=== PATIENT | male | born 1955 | race Caucasian/White ===

== ENCOUNTER 2017-08-07 15:38 | Outpatient (CLI) | payer BC ==
--- NOTE | 2017-08-07 17:03 | RAD ---
CHEST TWO VIEWS: History: Cough, congestion. Comparison: None. FINDINGS: Atherosclerosis of the aorta. Normal cardiac silhouette. The pulmonary vessels and hilum are normal. Costophrenic angles are clear. No consolidation or mass. No pneumothorax or osseous abnormality. IMPRESSION: No acute cardiopulmonary process. POS: [facility]
== END 2017-08-07 15:39 | disposition home or self-care (01) ==
LOC: SCSRAD 15:38
PROVIDERS: ATTEND Nurse Practitioner Family
DX: J40 Bronchitis, not specified as acute or chronic (principal)
CPT/HCPCS: 71046

== ENCOUNTER 2018-04-04 09:41 | Outpatient (CLI) | payer BC ==
[2018-04-04 10:37] LABS: Band 20 % (5-11); Hemoglobin 15.7 g/dL (14.0-18.0); Lymphocytes 3 % (21-51); MDiff Complete? YES; Mean Corpuscular HGB CONC 36.8 g/dL (32.0-36.0); Mean Corpuscular Hemoglobin 32.1 pg (27.0-31.0); Mean Corpuscular Volume 87.3 fL (78.0-98.0); Mean Platelet Volume 7.1 fL (7.4-10.4); Monocytes 4 % (0-10); Neutrophil 73 % (42-75); PLT Morphology Comment Appears Adequate; Platelet Count 201 thou/uL (130-400); RBC Morphology Normal; Red Blood Cell (RBC) Count 4.87 mill/uL (4.70-6.10); White Blood Cell (WBC) Count 28.1 thou/uL (4.8-10.8)
--- NOTE | 2018-04-04 12:22 | RAD ---
ABDOMEN TWO VIEWS: CHEST ONE VIEW: HISTORY: R10.31, right lower quadrant abdominal pain. COMPARISON: Radiograph from 08/07/2017. FINDINGS: Abnormally increased lung markings in both lung bases, worse than on the comparison exam. No pneumot horax. On the upright examination, there is no free air under the hemidiaphragms. There is abnormal lucency and air-fluid level in the right lower quadrant of the abdomen. Moderate degenerative changes to the lumbar spine. No abnormal calcifications projecting over the re nal shadows. Surgical clips along the inguinal areas bilaterally. IMPRESSION: Abnormal lucency along the right lower quadrant of the abdomen may reflect pneumatosis of the cecum. CT abdomen and pelvis with contrast is recommended. CODE CR POS: [facility]
== END 2018-04-04 09:42 | disposition home or self-care (01) ==
LOC: SCSRAD 09:41
PROVIDERS: ATTEND Nurse Practitioner Family
DX: R10.31 Right lower quadrant pain (principal); R93.5 Abnormal findings on diagnostic imaging of other abdominal regions, including retroperitoneum
CPT/HCPCS: 36415; 74022; 85025

== ENCOUNTER 2018-04-04 12:01 | Inpatient (IN) | payer BC ==
[~2018-04-04 12:01] MED LIST: ISOVUE-370 76%-LOCM 1 ML ONE
[2018-04-04 12:58] LABS: Hemoglobin 15.1 g/dL (14.0-18.0); Mean Corpuscular HGB CONC 34.9 g/dL (32.0-36.0); Mean Corpuscular Hemoglobin 32.5 pg (27.0-31.0); Mean Corpuscular Volume 93.2 fL (78.0-98.0); Mean Platelet Volume 7.1 fL (7.4-10.4); Platelet Count 204 thou/uL (130-400); RBC Distribution Width 11.6 % (11.5-14.5); Red Blood Cell (RBC) Count 4.64 mill/uL (4.70-6.10); White Blood Cell (WBC) Count 23.8 thou/uL (4.8-10.8)
[2018-04-04 13:16] LABS: Band 20 % (5-11); Lymphocytes 2 % (21-51); MDiff Complete? YES; Monocytes 6 % (0-10); Neutrophil 72 % (42-75); PLT Morphology Comment Appears Adequate; RBC Morphology Normal
[2018-04-04 13:18] LABS: ALT (SGPT) 19 U/L (8-55); AST (SGOT) 17 U/L (5-34); Albumin 3.9 g/dL (3.4-4.8); Alkaline Phosphatase 90 U/L (40-150); Anion Gap 14 mmol/L (10-20); BUN (Urea Nitrogen) 18 mg/dL (8.4-25.7); Bilirubin, Total 1.1 mg/dL (0.2-1.2); Calc. Creatinine Clearance 0 mL/min (70-130); Calcium 10.5 mg/dL (7.8-10.44); Carbon Dioxide 26 mmol/L (23-31); Chloride 91 mmol/L (98-107); Estimated GFR-MDRD Greater than 90; Globulin 2.7 g/dL (2.4-3.5); Glucose 126 mg/dL (80-115); Lipase 46 U/L (8-78); Potassium 3.6 mmol/L (3.5-5.1); Protein, Total 6.6 g/dL (5.8-8.1); Sodium 127 mmol/L (136-145)
[2018-04-04] MEDS ORDERED: Ondansetron HCl/PF 4 MG/2 ML Vial ONE (15:09)
[2018-04-04] MEDS ORDERED: Morphine 4 MG/ML VIAL ONE (15:10)
--- NOTE | 2018-04-04 15:18 | CT ---
CT ABDOMEN AND PELVIS WITH CONTRAST: Date: 04/04/18 HISTORY: Abdominal pain. COMPARISON: None. FINDINGS: Scarring right lung base. No pericardial effusion. Liver and spleen are unremarkable. Pancreas unremarkable. Along the pancreatic tail is a 4.0 mm hypod ensity. There is focal dilatation of the infrarenal abdominal aorta measuring 2.8 cm. Extensive ather osclerotic plaque. Small volume free fluid in the pelvis. Mild diverticular disease sigmoid colon without active current inflammation. Moderate stool burden throughout the descending colon. There is mild dilatation of the distal ileum measuring up to 3.5 cm. There is pneumatosis of the cecal apex. There is marked inflamm ation on the right paracolic gutter with small volume free fluid. Appendix is felt to be visualized and appears normal. Mucosal enhancement of the distal ileum appears to be normal. There is extensive atherosclerotic plaque to the superior mesenteric artery. Advanced facet arthropathy lower lumbar spine. IMPRESSION: 1. Pneumatosis of the cecal apex with extensive inflammatory stranding and fluid around the distal i leum and around the cecal apex. This is most likely ischemic in nature, less likely infectious given the patient's history of extensive vascular disease and smoking. There is also moderate volume free f luid. 2. Mild dilatation of the distal abdominal aorta measuring nearly 3.0 cm. 3. Small nodule of the lateral right adrenal gland. Nonemergent adrenal protocol workup recommended. Dr. Aparicio notified of findings at 1430 hours. CODE CR. POS: [facility]
[2018-04-04 15:39] LABS: Bilirubin Negative (Negative); Blood, Urine Negative (Negative); Clarity CLEAR (Clear); Glucose, Urine (Dipstick) Negative (Negative); Leukocyte Negative (Negative); Nitrite Negative (Negative); Protein, Urine (Dipstick) Negative (Neg-Trace); Specific Gravity, Urine 1.033 (1.002-1.036); Urobilinogen 0.2 mg/dL (0.2-1.0); pH, Urine 7.5 (5.0-9.0)
[2018-04-04] MEDS ORDERED: Piperacillin/Tazobactam 4.5 GM VIAL ONE (15:56)
[2018-04-04 16:11] LABS: Lactic Acid 1.4 mmol/L (0.5-2.2)
[2018-04-04] MEDS ORDERED: Dextrose 5% in Water 1,000 ML IV PRN (16:51)
[2018-04-04] MEDS ORDERED: Morphine 4 MG/ML VIAL SLOW IVP PRN (16:51)
[2018-04-04] MEDS ORDERED: Ondansetron HCl/PF 4 MG/2 ML Vial IVP PRN (16:51)
[2018-04-04] MEDS ORDERED: Dextrose 50% Abboject 50 ML SYRINGE SLOW IVP PRN (16:51)
[2018-04-04 17:01] LABS: Lactic Acid 1.7 mmol/L (0.5-2.2)
[2018-04-04 17:07] LABS: INR-International Normal Ratio 1.1; PTT 33.9 SEC (22.9-36.1); Prothrombin Time 14.6 SEC (12.0-14.7)
[2018-04-04] MEDS ORDERED: Heparin 25,000 units/D5W 500 ML ONE (17:22)
[2018-04-04 18:13] LABS: Hemoglobin 13.7 g/dL (14.0-18.0); Platelet Count 181 thou/uL (130-400)
[2018-04-04] MEDS: Famotidine/PF 20 mg/2ml Vial SLOW IVP SCH (21:34)
[2018-04-04] MEDS: Sodium Chloride 0.9% 1,000 ML IV SCH (21:34)
[2018-04-04] MEDS: Piperacillin/Tazobactam 3.375 GM in Sodium Chloride 0.9% 100 ML IVPB SCH (21:35)
[2018-04-04 22:20] VITALS: BMI 26.4
[2018-04-04 23:48] LABS: PTT 146.7 SEC (22.9-36.1)
--- NOTE | 2018-04-05 00:02 | HP ---
DATE OF SERVICE: 04/04/2018 Referred by the emergency department SURGERY ATTENDING: Dr. Carlos Elias. PRIMARY CARE PROVIDER: Manisha Nuñez NP REASON FOR CONSULTATION: 1. Abdominal pain. 2. Concern for ischemic bowel. HISTORY OF PRESENT ILLNESS: Mr. Gallagher is a 63-year-old male with a past medical history of half pack per day smoking since age 20, vasculopath with bilateral femoral bypass with Dr. Kebede, hypertension, hyperlipidemia who presents to the emergency department today with a chief complaint of 1 day of severe intermittent abdominal pain, worse right lower quadrant, presented to his primary care physician today and then subsequently transferred to the emergency department for concern for peritonitis. In the emergency department, the patient was found to have leukocytosis up to 24,000 with a leftward shift and bandemia of 20. His vital signs remained stable. He is afebrile, and a CT abdomen and pelvis demonstrates pneumatosis and concern for mesenteric ischemia. The patient has been given 1 liter of fluid, 4 morphine and 4 Zofran. The surgery team has been asked to consult for operative management and further critical care. I have seen the patient in the emergency department. He is sitting upright, states that he has never had pain like this in the past. He has not changed anything recently. He has had no travel, no rash, no fever, no chest pain or shortness of air. The patient did vomit multiple times yesterday, it was bilious vomit, nonbloody. He has not had a bowel movement since yesterday and he has had no flatus or bowel movement today. He has never noted blood in his stool. He has had no abdominal surgeries in the past. REVIEW OF SYSTEMS: Twelve-point review of systems pertinent positive and negative per the HPI, otherwise is regarded as negative. PAST MEDICAL HISTORY: 1. Hypertension. 2. Hyperlipidemia. 3. Smoking. PAST SURGICAL HISTORY: Bilateral fem-pop bypass, first in 2011 and then a few years later, both by Dr. Kebede. MEDICATIONS: Lisinopril 10 mg, a statin 10 mg unknown which one, and baby aspirin daily. ALLERGIES: No known drug allergies. SOCIAL HISTORY: The patient smokes one-half pack per day, since age 20. He drinks 6 pack of beer daily without any liquor and has never withdrawn. Lives in [place] with his and works as a industrial mechanic. FAMILY HISTORY: Significant mother with diabetes. Father is reported to be healthy. Last oral intake was last night. ANESTHESIA: The patient has never had trouble with anesthesia. PHYSICAL EXAMINATION: VITAL SIGNS: Blood pressure is 96/70, heart rate is 96, respiratory rate is 16 , temperature is 99.5, and he is 95% on room air. GENERAL: A 63-year-old male sitting up in bed in slight distress with the pain. HEENT: Normocephalic, atraumatic. Trachea is midline. No JVD is appreciated. He has got moist mucous membranes. RESPIRATORY: Equal rise and fall. Bilateral breath sounds are clear. Lower does have a cough appreciated with no rubs or wheezes and no nicole consolidations or accessory muscle use. CARDIOVASCULAR: Regular rate and rhythm. No murmurs are appreciated. He has got strong pulses in 4 extremities and no edema. ABDOMEN: Protuberant. He has slight tenderness to palpation to the right abdomen, lower. No nicole peritoneal signs. He is able to stand, walk, stamp his feet. He has minimal tenderness with rebound. No guarding. No nicole rigidity, mild distention. PELVIS: Deferred. MUSCULOSKELETAL: Moves all extremities well. No deformities are appreciated. SKIN: [place], warm, and dry. NEUROLOGIC: Alert and oriented to person, place, time, and event. No gross deficits are appreciated. DIAGNOSTIC DATA: 1. A CT scan of abdomen and pelvis today with contrast enhanced showed pneumatosis of the cecal apex with extensive inflammatory stranding. 2. Mild dilation in the distal abdominal aorta, 3 cm. LABORATORY DATA: CBC shows a white blood cell count of 23.8, platelets 240, hemoglobin and hematocrit 15.1 and 43.2 respectively. Does have a bandemia at 20. Chemistry is sodium 127, potassium 3.6, chloride is 91, CO2 is 26, BUN is 18, creatinine is 0.76, glucose 126. Bilirubin total is 1.1. AST and ALT 17 and 19 respectively. Alkaline phosphatase is 90. Lipase is 46. UA is yellow, clear, and negative. Otherwise, lactate is pending as well as coags. ASSESSMENT: 1. Pneumatosis with concern for ischemic bowel. 2. Sepsis secondary to intra-abdominal pathology 3. Abdominal pain. 4. Hyponatremia could be secondary to beer potomania. 5. History of tobacco abuse. 6. History of hypertension, hyperlipidemia, and likely vasculopath. MDM: The patient with concern for ischemic bowel. We will aggressively treat the patient's borderline hypotension today and sepsis with fluid boluses. I have requested Zosyn to be started as well as blood cultures to be pulled in the emergency department. The patient will be started on a heparin infusion to try to do bowel salvage. We have discussed this with the emergency department physician and the bedside RN as well as the patient. PLAN: 1. Admit to the surgical cardenas. 2. Start heparin bolus plus infusion. 3. Obtain coags. 4. Additional 1 liter fluid ordered. 5. Monitor blood pressure, maintain mean arterial pressure greater than 65. 6. Obtain lactate and trend as needed. 7. Serial abdominal exams. 8. N.p.o. now for possible surgery. 9. Zosyn. We will follow cultures. 10. Obtain 2D echocardiogram. 11. Pain control as needed. 12. Place the Resendez catheter and monitor strict I's and O's. 13. Smoking cessation has been encouraged. 14. Diet will be n.p.o. 15. Activity: Bed rest with bathroom privileges. 16. Access: Peripheral IVs, we will place a Resendez catheter. 17. Prophylaxis. Will be Pepcid, SCDs, and heparin infusion. DISPOSITION: Surgical cardenas. I have updated the patient and the patient's at the bedside and answered all questions. The patient understands it very well and may likely need surgery for his serious illness. Verbalized the same. The patient was seen with Dr. Elias. I have coordinated care with the emergency department physician , the emergency department team, and the surgery cardenas. GALINA
[2018-04-05] MEDS: Sodium Chloride 0.9% 1,000 ML IV SCH ×2 (03:32→06:46)
[2018-04-05] MEDS: Piperacillin/Tazobactam 3.375 GM in Sodium Chloride 0.9% 100 ML IVPB SCH ×4 (03:33→21:15)
[2018-04-05 05:38] LABS: INR-International Normal Ratio 1.4; Prothrombin Time 17.4 SEC (12.0-14.7)
[2018-04-05 05:42] LABS: Lactic Acid 0.9 mmol/L (0.5-2.2)
[2018-04-05 05:50] LABS: ALT (SGPT) 14 U/L (8-55); AST (SGOT) 13 U/L (5-34); Albumin 3.4 g/dL (3.4-4.8); Alkaline Phosphatase 90 U/L (40-150); Anion Gap 9 mmol/L (10-20); BUN (Urea Nitrogen) 17 mg/dL (8.4-25.7); Bilirubin, Total 0.8 mg/dL (0.2-1.2); Calc. Creatinine Clearance 116 mL/min (70-130); Calcium 9.2 mg/dL (7.8-10.44); Carbon Dioxide 27 mmol/L (23-31); Chloride 98 mmol/L (98-107); Estimated GFR-MDRD Greater than 90; Globulin 2.4 g/dL (2.4-3.5); Glucose 120 mg/dL (80-115); Potassium 3.4 mmol/L (3.5-5.1); Protein, Total 5.8 g/dL (5.8-8.1); Sodium 131 mmol/L (136-145)
[2018-04-05 06:16] LABS: Band 4 % (5-11); Hemoglobin 12.7 g/dL (14.0-18.0); Hypochromia SLIGHT = 6-15 cells (100X) (0-5/hpf); Lymphocytes 4 % (21-51); MDiff Complete? YES; Mean Corpuscular HGB CONC 34.5 g/dL (32.0-36.0); Mean Corpuscular Hemoglobin 32.2 pg (27.0-31.0); Mean Corpuscular Volume 93.5 fL (78.0-98.0); Mean Platelet Volume 7.7 fL (7.4-10.4); Neutrophil 92 % (42-75); PLT Morphology Comment Appears Adequate; Platelet Count 163 thou/uL (130-400); RBC Distribution Width 11.5 % (11.5-14.5); Red Blood Cell (RBC) Count 3.95 mill/uL (4.70-6.10); White Blood Cell (WBC) Count 20.8 thou/uL (4.8-10.8)
[2018-04-05 08:07] LABS: Magnesium 1.7 mg/dL (1.6-2.6); Phosphorus 3.2 mg/dL (2.3-4.7)
[2018-04-05] MEDS: NS 0.9% w/ 20 MEQ KCL 1,000 ML/1,000 ML BAG IV SCH ×2 (08:42→15:12)
[2018-04-05] MEDS: Famotidine/PF 20 mg/2ml Vial SLOW IVP SCH ×2 (08:42→20:40)
[2018-04-05] MEDS: Heparin 10,000 UNITS/ 10 ML VIAL SLOW IVP SCH ×2 (09:25→15:54)
[2018-04-05] MEDS ORDERED: Potassium Chloride 40 MEQ, Magnesium Sulfate 2 GM in Sodium Chloride 0.9% 250 ML 250 ML IVPB SCH (09:30)
--- NOTE | 2018-04-05 12:30 | PRG ---
DATE OF SERVICE: 04/05/2018 SUBJECTIVE: This is a 63-year-old man who was admitted yesterday with acute ischemic colitis of the cecum. The patient has a severe peripheral vascular disease. His physical examination did not suggest any ischemic bowel necrosis. Heparin infusion was then initiated yesterday. Overnight, the patient has done well. This morning, he reports 1-10 abdominal pain. Denies passing any flatus, nevertheless. Denies any nausea or vomiting. Urinary output has been adequate. OBJECTIVE: VITAL SIGNS: This morning includes blood pressure is 114/72, pulse is 83, respiratory rate is 18, temperature is 98.9 degrees Fahrenheit, maximum temperature since admission is 99.5 degrees Fahrenheit, oxygen saturation is 92 % on 2 liters by nasal cannula oxygen. HEENT: Reveals normocephalic and atraumatic. Pupils equal, round, and reactive to light and accommodation. HEART: Reveals regular rate and rhythm. No murmurs or gallops auscultated. CHEST: Clear to auscultation bilaterally. Breathing regular and unlabored. ABDOMEN: Soft, moderately distended. He has mild tenderness to palpation with no gross rebound tenderness present. Bowel sounds hypoactive in all 4 quadrants. Liver and spleen nonpalpable below costal margins. NEUROLOGIC: Reveals no focal deficits present. LABORATORY FINDINGS: Includes a CBC today with 20,800 white blood cells compared to 23,800 yesterday. Hemoglobin and hematocrit stable at 12.7 and 37.0 respectively. Platelet count is 163,000. Differential counts as follows, 92% segmented neutrophils, 4 bands, 4 lymphocytes. Metabolic profile: Sodium 131, potassium is 3.4, chloride is 98, bicarbonate 27, BUN 17, creatinine 0.84, glucose 120. Lactic acid 0.9, magnesium 1.7, phosphorus is 3.2. IMPRESSION: 1. Post-admission day #1, status post ischemic colitis. 2. Severe peripheral vascular disease. 3. Acute hypokalemia. 4. Acute hypomagnesemia. PLAN: 1. Correct abnormal electrolytes. 2. Continue with heparin infusion. 3. There is no acute surgical indication for this patient at this time as it appears conservative management supporting. Above findings and plan discussed with the patient who indicates understanding of the information given. I have answered his questions. GALINA
[2018-04-05] MEDS: Heparin 25,000 units/D5W 500 ML IVPB SCH (13:30)
[2018-04-06] MEDS: NS 0.9% w/ 20 MEQ KCL 1,000 ML/1,000 ML BAG IV SCH ×3 (04:16→16:33)
[2018-04-06] MEDS: Heparin 25,000 units/D5W 500 ML IVPB SCH ×2 (04:16→20:38)
[2018-04-06] MEDS: Piperacillin/Tazobactam 3.375 GM in Sodium Chloride 0.9% 100 ML IVPB SCH ×4 (04:16→21:13)
[2018-04-06] MEDS: Heparin 10,000 UNITS/ 10 ML VIAL SLOW IVP SCH (06:03)
[2018-04-06] MEDS: Famotidine/PF 20 mg/2ml Vial SLOW IVP SCH ×2 (08:17→20:39)
[2018-04-06 09:24] LABS: Anion Gap 12 mmol/L (10-20); BUN (Urea Nitrogen) 14 mg/dL (8.4-25.7); Calc. Creatinine Clearance 135 mL/min (70-130); Calcium 8.9 mg/dL (7.8-10.44); Carbon Dioxide 25 mmol/L (23-31); Chloride 102 mmol/L (98-107); Estimated GFR-MDRD Greater than 90; Glucose 102 mg/dL (80-115); Magnesium 2.1 mg/dL (1.6-2.6); Phosphorus 2.1 mg/dL (2.3-4.7); Potassium 3.8 mmol/L (3.5-5.1); Sodium 135 mmol/L (136-145)
[2018-04-06 09:28] LABS: Band 7 % (5-11); Lymphocytes 9 % (21-51); MDiff Complete? YES; Mean Corpuscular HGB CONC 33.8 g/dL (32.0-36.0); Mean Corpuscular Hemoglobin 32.2 pg (27.0-31.0); Mean Corpuscular Volume 95.3 fL (78.0-98.0); Mean Platelet Volume 8.6 fL (7.4-10.4); Monocytes 1 % (0-10); Neutrophil 83 % (42-75); Platelet Count 156 thou/uL (130-400); RBC Distribution Width 11.7 % (11.5-14.5); Red Blood Cell (RBC) Count 4.03 mill/uL (4.70-6.10); White Blood Cell (WBC) Count 16.9 thou/uL (4.8-10.8)
--- NOTE | 2018-04-06 14:45 | PRG ---
DATE OF SERVICE: 04/06/2018 SUBJECTIVE: Patient is hospital day #3 after being admitted for ischemic colitis. The patient has d one well overnight. He denies any nausea or vomiting, but has still not passed any gas and denies an y bowel movements. PHYSICAL EXAMINATION: VITAL SIGNS: Temperature is 98.1, heart rate 101, blood pressure 121/76, respirations 12, oxygen sat uration is 92% on 3 liters via nasal cannula. GENERAL: The patient is resting comfortably in bed. He is awake, alert, and oriented x3. HEENT: Unremarkable. LUNGS: Clear to auscultation bilaterally with good inspiratory and expiratory effort. HEART: Has regular rate and rhythm. ABDOMEN: Soft with some distention. There are no peritoneal signs. Bowel sounds are hypoactive. EXTREMITIES: Neurovascularly intact x4. LABORATORY DATA AND IMAGING DATA: White blood cell count 16.9, hemoglobin 13.0, hematocrit 38.4, jeffrey telets 156. Sodium 135, potassium 3.8, chloride 102, CO2 25, BUN 14, creatinine 0.72, glucose 102, m agnesium 2.1 and phosphorus 2.1. There are no radiographs to review this morning. ASSESSMENT AND PLAN: 1. Status post ischemic colitis hospital day #3. 2. Severe peripheral vascular disease. Plan will be to continue supportive care, remain n.p.o. and encourage ambulation. We will request a walking program assist the patient in ambulating for mobility to hopefully resume bowel function.
[2018-04-06 18:31] LABS: Hemoglobin 12.5 g/dL (14.0-18.0); Platelet Count 177 thou/uL (130-400)
[2018-04-07] MEDS: NS 0.9% w/ 20 MEQ KCL 1,000 ML/1,000 ML BAG IV SCH ×4 (02:03→20:58)
[2018-04-07] MEDS: Piperacillin/Tazobactam 3.375 GM in Sodium Chloride 0.9% 100 ML IVPB SCH ×4 (03:35→22:00)
[2018-04-07 06:45] LABS: #Eosinphils 0.2 thou/uL (0.0-0.7); #Lymphocytes 0.9 thou/uL (1.20-3.40); #Monocytes 0.7 thou/uL (0.11-0.59); #Neutrophils 9.1 thou/uL (1.40-6.50); %Basophils 0.3 % (0.0-1.0); %Eosinophils 1.8 % (0.0-10.0); %Lymphocytes 7.8 % (21.0-51.0); %Monocytes 6.6 % (0.0-10.0); %Neutrophils 83.6 % (42.0-75.0); Hemoglobin 12.1 g/dL (14.0-18.0); Mean Corpuscular HGB CONC 33.9 g/dL (32.0-36.0); Mean Corpuscular Hemoglobin 32.4 pg (27.0-31.0); Mean Corpuscular Volume 95.5 fL (78.0-98.0); Mean Platelet Volume 7.3 fL (7.4-10.4); Platelet Count 166 thou/uL (130-400); RBC Distribution Width 11.5 % (11.5-14.5); Red Blood Cell (RBC) Count 3.74 mill/uL (4.70-6.10); White Blood Cell (WBC) Count 10.9 thou/uL (4.8-10.8)
[2018-04-07 07:05] LABS: Anion Gap 11 mmol/L (10-20); BUN (Urea Nitrogen) 11 mg/dL (8.4-25.7); Calc. Creatinine Clearance 145 mL/min (70-130); Calcium 8.4 mg/dL (7.8-10.44); Carbon Dioxide 24 mmol/L (23-31); Chloride 104 mmol/L (98-107); Estimated GFR-MDRD Greater than 90; Glucose 119 mg/dL (80-115); Potassium 3.7 mmol/L (3.5-5.1); Sodium 135 mmol/L (136-145)
[2018-04-07 07:20] LABS: Phosphorus 1.7 mg/dL (2.3-4.7)
[2018-04-07] MEDS: Heparin 10,000 UNITS/ 10 ML VIAL SLOW IVP SCH ×3 (07:22→21:55)
[2018-04-07] MEDS: Famotidine/PF 20 mg/2ml Vial SLOW IVP SCH ×2 (08:39→22:12)
[2018-04-07] MEDS: Heparin 25,000 units/D5W 500 ML IVPB SCH ×2 (08:53→21:53)
[2018-04-07] MEDS ORDERED: Magnesium 2 GM/NS 0.9% 100 ML 2 GM in Premix Bag 1 BAG IVPB SCH (09:00)
[2018-04-07] MEDS ORDERED: Potassium Phosphate 30 MMOL in Sodium Chloride 0.9% 500 ML IVPB SCH (10:00)
[2018-04-07] MEDS ORDERED: Furosemide 40 MG/4 ML VIAL SLOW IVP SCH (10:00)
--- NOTE | 2018-04-07 10:51 | RAD ---
PORTABLE AP CHEST XRAY: DATE: 04/07/18. HISTORY: Hypoxia. COMPARISON: 08/07/17. FINDINGS: The cardiac silhouette and pulmonary vasculature are magnified by projection. Lungs are clear. Bronc hovascular markings are accentuated by the shallow depth or inspiration. There has been no interval change from prior exam. IMPRESSION: No acute cardiopulmonary process. POS: [facility]
--- NOTE | 2018-04-07 12:25 | EKG ---
Test Reason : Blood Pressure : / mmHG Vent. Rate : 093 BPM Atrial Rate : 093 BPM P-R Int : 176 ms QRS Dur : 100 ms QT Int : 354 ms P-R-T Axes : 046 013 074 degrees QTc Int : 440 ms Normal sinus rhythm Normal ECG Confirmed by SHEELA PATEL ([id number]), supervising editor trailer TICO NAIR ([id number]) on 04/07/2018 12:25:02 PM Referred By: Confirmed By:SHEELA PATEL
--- NOTE | 2018-04-07 12:36 | CT ---
CT ABDOMEN AND PELVIS WITH CONTRAST: COMPARISON: 04/04/18. HISTORY: Ischemic colitis. Abdominal pain. Evaluate for obstruction. TECHNIQUE: Multiple contiguous axial images were obtained in a CT of the abdomen and pelvis with contrast. P.o. contrast was administered. Coronal reformats were performed. FINDINGS: There are dilated loops of proximal small bowel with thickening of the wall of the small bowel loops. The small bowel loops measure up to 4.4 cm in greatest dimension with thickening of the proximal sm all bowel wall to 1.2 cm. The distal small bowel loops are decompressed. No obvious transition poin t is seen. In the cecum, there previously was a large amount of stool present. This stool is no longer seen in this location, but there appears to be air within the wall of the cecum. There is possibly an intram ural fluid collection within the wall of the cecum seen anteriorly. No free air is seen in the abdom en. A small amount of free fluid is seen in the pelvis. Stranding change is again seen surrounding t he cecum. There is scattered diverticula in the colon. Atherosclerotic calcifications are seen in the aorta. No obvious thrombus is seen within the celiac trunk or SMA. No abdominal or pelvic lymphadenopathy is seen. Degenerative changes are seen in the spine. Bibasilar atelectasis is seen. The abdominal wall soft tissues are unremarkable. IMPRESSION: 1. There appears to be air in the wall of the cecum. This could be secondary to benign cause such a s pneumatosis intestinalis. This could also be secondary to a more concerning clinical cause such a s bowel ischemia. 2. There are dilated loops of proximal small bowel with thickened curry. No obvious transition poin t is seen. This could be secondary to a bowel obstruction or ileus. 3. Diverticulosis. The patient's nurse, Lydia, was notified of the findings at 12:07 p.m. on 018. She will get hold of JANIS Moscoso regarding the findings. CODE CR POS: [facility]
--- NOTE | 2018-04-07 17:46 | PRG ---
DATE OF SERVICE: 04/07/2018 SUBJECTIVE: Jimbo Gallagher is a 63-year-old male, hospital day #4 status post admission for ischemic c olitis. There were no acute overnight events. The patient is now passing gas and has had a bowel mo vement. He denied any hematochezia or melena. He was afebrile overnight. The patient states that h is pain is improved. OBJECTIVE: VITAL SIGNS: Temperature 97.3, pulse 104, respiration rate 18, O2 sat 90% on room air, blood pressur e 150/82. GENERAL: Elderly appearing male in no acute distress, ambulating in the room. PULMONARY: Normal work of breathing. IS 2000 mL. ABDOMEN: Nontender, mildly firm. Bowel sounds are positive. There is no rebound, guarding or rigid ity. MUSCULOSKELETAL: Moves all extremities x4. NEUROLOGIC: No focal deficit is noted. LABORATORY DATA: WBC 10.9, hemoglobin 12.1, hematocrit 35.7, platelet count 166. PTT 56.9. Sodium 135, potassium 3.7, chloride 104, carbon dioxide 24, BUN 11, creatinine 0.67, glucose 119. Phosphoru s 1.7, magnesium 2.0. ASSESSMENT: 1. Ischemic colitis, hospital day #3. 2. Peripheral vascular disease. 3. Tobacco abuse. 4. Acute hypoxic respiratory insufficiency. PLAN: Chest x-ray now. Check BNP. Repeat CT abdomen and pelvis with p.o. and IV contrast. As the patient's pain is improved, his leukocytosis has improved and he is having normal bowel movement, wou ld like to advance diet: however, there is still significant concern for inflammation given the patie nt's presentation. Continue heparin drip for now. Replete abnormal electrolytes. A.m. labs. The p atient has been seen and evaluated with Dr. Elias.
[2018-04-08] MEDS: Piperacillin/Tazobactam 3.375 GM in Sodium Chloride 0.9% 100 ML IVPB SCH ×4 (05:06→21:58)
[2018-04-08 06:03] LABS: Anion Gap 13 mmol/L (10-20); BUN (Urea Nitrogen) 7 mg/dL (8.4-25.7); Calc. Creatinine Clearance 152 mL/min (70-130); Calcium 8.6 mg/dL (7.8-10.44); Carbon Dioxide 23 mmol/L (23-31); Chloride 103 mmol/L (98-107); Estimated GFR-MDRD Greater than 90; Glucose 122 mg/dL (80-115); Magnesium 2.1 mg/dL (1.6-2.6); Phosphorus 2.1 mg/dL (2.3-4.7); Potassium 3.5 mmol/L (3.5-5.1); Sodium 135 mmol/L (136-145)
[2018-04-08] MEDS: NS 0.9% w/ 20 MEQ KCL 1,000 ML/1,000 ML BAG IV SCH (06:06)
[2018-04-08 06:24] LABS: Band 17 % (5-11); Eosinophils 6 % (0-10); Hemoglobin 11.9 g/dL (14.0-18.0); Lymphocytes 16 % (21-51); MDiff Complete? YES; Mean Corpuscular HGB CONC 33.4 g/dL (32.0-36.0); Mean Corpuscular Hemoglobin 31.5 pg (27.0-31.0); Mean Corpuscular Volume 94.5 fL (78.0-98.0); Mean Platelet Volume 7.7 fL (7.4-10.4); Monocytes 5 % (0-10); Neutrophil 56 % (42-75); PLT Morphology Comment Appears Adequate; Platelet Count 170 thou/uL (130-400); RBC Distribution Width 11.8 % (11.5-14.5); Red Blood Cell (RBC) Count 3.79 mill/uL (4.70-6.10)
[2018-04-08] MEDS: Heparin 25,000 units/D5W 500 ML IVPB SCH (07:31)
[2018-04-08] MEDS: Famotidine/PF 20 mg/2ml Vial SLOW IVP SCH ×2 (08:52→21:58)
[2018-04-08] MEDS ORDERED: Magnesium Sulfate 3 GM in Sodium Chloride 0.9% 100 ML IVPB SCH (09:00)
[2018-04-08] MEDS ORDERED: Potassium Phosphate 30 MMOL in Sodium Chloride 0.9% 500 ML IVPB SCH (10:00)
--- NOTE | 2018-04-08 12:19 | CT ---
NONCONTRAST CT HEAD: DATE: 04/08/18. HISTORY: Confusion, on heparin drip. COMPARISON: None available. FINDINGS: There is no evidence of an intraparenchymal or extraaxial hemorrhage. There is no evidence of an acu te infarction, mass effect, or midline shift. There is mild cerebral volume loss. The ventricular s ystem is normal in size, shape, and position. The visualized paranasal sinuses and mastoid air cells are clear. Calvarial structures have a normal appearance. There is a small lucency seen within the left parietal bone of uncertain etiology but of doubtful clinical significance. Vascular calcificat ion is seen in the carotid siphons. IMPRESSION: No acute intracranial abnormality is demonstrated. POS: [facility]
[2018-04-08 13:26] LABS: Actual Bicarbonate (HCO3a) 27.2 mEq/L (22-28); Base Excess (BEa) 2.2 mEq/L (-2.0 to +3.0); CO2 Tension 43.6 mmHg (35.0-45.0); Calcium, Ionized 1.12 mmol/L (1.12-1.30); Hemoglobin (Hb) 12.9 g/dL (14.0-18.0); pH, Arterial 7.41 (7.35-7.45)
[2018-04-08 13:28] LABS: O2 Tension (PaO2) 57.7 mmHg (> 80.0); Puncture Site RRA
[2018-04-08] MEDS: Lorazepam 2 MG/ML VIAL SLOW IVP PRN ×2 (14:04→22:00)
[2018-04-08] MEDS ORDERED: Furosemide 40 MG/4 ML VIAL SLOW IVP SCH (15:45)
[2018-04-08] MEDS ORDERED: Haloperidol Lactate 5 MG/ML VIAL SLOW IVP PRN (16:29)
[2018-04-08 16:57] LABS: Hemoglobin 12.4 g/dL (14.0-18.0); Platelet Count 177 thou/uL (130-400)
[2018-04-08 17:30] LABS: CKMB 4.4 ng/mL (0-6.6); Troponin I 0.059 ng/mL (< 0.028)
--- NOTE | 2018-04-08 18:05 | PRG ---
DATE OF SERVICE: 04/08/2018. SUBJECTIVE: Mr. Jimbo Gallagher is a 63-year-old male that was hospital day #5, admission for ischemic colitis. Overnight, the patient's RN and have reported that he has become increasingly confused and agitated. There are no focal deficits noted. He does seem to have periods of lucidity this mor arian; however, he is agitated, pacing around the room and does appear altered and confused at other t imes. OBJECTIVE: VITAL SIGNS: Temperature 98.1, pulse 91, respirations 16, O2 sat 90% on room air, blood pressure 151 /83. GENERAL: Elderly appearing male pacing in the room, blood on the floor. The patient has recently ri pped his IV out. He is not currently wearing his oxygen. PULMONARY: Normal work of breathing. Symmetric rise. CARDIOVASCULAR: Regular rate and rhythm. GASTROINTESTINAL: Abdomen is soft, nontender, nondistended. MUSCULOSKELETAL: Moves all extremities x4. NEUROLOGIC: No focal deficit noted. LABORATORY DATA: WBC 9.0, hemoglobin 11.9, hematocrit 35.8, platelet count 170. Most recent PTT 84. Sodium 135, potassium 3.5, chloride 103, carbon dioxide 23, BUN 7, creatinine 0.64, glucose 122, ph osphorus 2.1, magnesium 2.1. ASSESSMENT: 1. Ischemic colitis hospital day #5. 2. Peripheral vascular disease. 3. Tobacco abuse. 4. Hypertension. 5. Acute hypoxic respiratory failure. PLAN: A stat CT of the head revealed no acute intracranial abnormality. Stat ABG showed hypoxia wit h a pO2 of 57. The patient was given 0.5 mg of Ativan and nursing staff instructed to replace the pa tient's oxygen. Patient's BNP yesterday was only 68; however, he still remains positive for this adm ission and creatinine and BUN is low today. He did okay with diuresis yesterday. We will attempt 1 time dose of IV Lasix now. We will also start the patient on Solu-Medrol given history of significan t tobacco use. Importance of continued hospitalization and medical care stressed both to the patient and the at bedside. The patient was seen and evaluated yesterday evening by Dr. Delgado. Samia ent refused intervention at that time. He has been started on a regular diet, although given his willow tation, he has not had started eating yet. We will continue on heparin drip for now as he is still a t high risk for complications. Plan of care was discussed with the patient and family at bedside. Kaia boo was discussed with trauma attending.
[2018-04-08] MEDS ORDERED: Ziprasidone 20 MG VIAL IM SCH (18:45)
[2018-04-08] MEDS ORDERED: Sterile Water 10 ML VIAL FS SCH (18:45)
[2018-04-08] MEDS: Heparin 10,000 UNITS/ 10 ML VIAL SLOW IVP SCH (19:33)
--- NOTE | 2018-04-08 20:05 | PDOC.GSPN ---
Surgery Progress Note: Subj - Subjective Narrative: I saw the patient last night after his CT scan and again this morning. He had continued pneumatosis as well as a fluid collection in the wall of his anterior ascending colon, and I was also concerned that he had fairly significant thickening of some of his proximal small bowel loops. I explained to him last night that I was concerned about possible SMA disease that could put him at risk for catastrophic ischemic bowel. He was not having any abdominal pain but did have some tenderness to palpation of the right abdomen with some voluntary guarding. I recommended asking vascular surgery to look his imaging to see if he should have angiography but the patient adamantly refused. He states that although he has seen Dr. Kebede in the past and had a good experience he does not want to consider any additional procedures. I explained that if he did have occlusion of his SMA he could have catastrophic ischemic bowel from which he could not recover, but he stated that, "that could happen with anything". He was adamant that he wanted to advance his diet and go home in the next day or 2 , so I advanced him to fulls but left him on the heparin drip. When I saw him last night he appeared lucid and rational, but this morning he is agitated and confrontational. His family states that this has been an acute change for him. He states that he has been sleeping but his family states that he has not. He continues to be adamant that he does not want to undergo any further testing and that he will be going home soon. He had been refusing to wear his oxygen but has been keeping it on better since his daughter arrived. CT of the head did not show any acute abnormalities and ABG showed hypoxemia on room air; his O2 sats are better since replacing his oxygen. His abdominal exam is unchanged and he is not tachycardic or febrile. I suspect that he is sundowning, but could not rule out early delirium from sepsis, so I placed him back on a clear liquid diet. He had some nonspecific ST changes on EKG so troponins were ordered which were indeterminate. He has not had any chest pain or shortness of breath. Since I saw him his behavior escalated and he has had to be placed in soft restraints to prevent self harm. Surgery Progress Note: Obj - Vital signs Vital signs: Vital Signs - Most Recent Temp Pulse Resp BP Pulse Ox 97.9 F 91 18 186/95 H 95 04/08/18 15:21 04/08/18 19:15 04/08/18 19:15 04/08/18 15:21 04/08/18 19:15 Surgery Progress Note: Results - Labs Result Diagrams: 04/08/18 16:48 04/08/18 05:01 Lab results: Laboratory Results - last 24 hr 04/08/18 04/08/18 04/08/18 10:57 13:15 16:48 Hgb 12.4 L Hct 35.6 L Plt Count 177 APTT 102.3 H Specimen Type ARTERIAL Puncture Site RRA Bicarbonate Actual 27.2 ABG pH 7.41 ABG pCO2 43.6 ABG pO2 57.7 L* ABG O2 Sat Calc/Flor 91.0 L ABG O2 Content 16.3 L ABG Base Excess 2.2 ABG Hematocrit 38.0 L ABG Hemoglobin 12.9 L ABG Oxyhemoglobin 89.8 L ABG Carboxyhemoglobin 1.0 ABG Methemoglobin 0.30 ABG Deoxyhemoglobin 8.9 H James Test NOT DONE A-a O2 Gradient 37.530 H Sodium 134 L Potassium 3.50 L Chloride 101 Ionized Calcium 1.12 Mode of Support RM AIR Inspired O2 21 CK-MB (CK-2) Troponin I 04/08/18 04/08/18 16:48 16:48 Hgb Hct Plt Count APTT 48.9 H Specimen Type Puncture Site Bicarbonate Actual ABG pH ABG pCO2 ABG pO2 ABG O2 Sat Calc/Flor ABG O2 Content ABG Base Excess ABG Hematocrit ABG Hemoglobin ABG Oxyhemoglobin ABG Carboxyhemoglobin ABG Methemoglobin ABG Deoxyhemoglobin James Test A-a O2 Gradient Sodium Potassium Chloride Ionized Calcium Mode of Support Inspired O2 CK-MB (CK-2) 4.4 Troponin I 0.059 H
[2018-04-08 21:56] LABS: Hemoglobin 12.5 g/dL (14.0-18.0); Mean Corpuscular HGB CONC 34.6 g/dL (32.0-36.0); Mean Corpuscular Hemoglobin 32.8 pg (27.0-31.0); Mean Corpuscular Volume 94.6 fL (78.0-98.0); Mean Platelet Volume 7.3 fL (7.4-10.4); Platelet Count 173 thou/uL (130-400); RBC Distribution Width 11.6 % (11.5-14.5); Red Blood Cell (RBC) Count 3.81 mill/uL (4.70-6.10); White Blood Cell (WBC) Count 8.4 thou/uL (4.8-10.8)
[2018-04-08 22:01] LABS: Lactic Acid 0.8 mmol/L (0.5-2.2)
[2018-04-08 22:12] LABS: CKMB 4.2 ng/mL (0-6.6); Troponin I 0.039 ng/mL (< 0.028)
[2018-04-08 22:17] LABS: Anion Gap 12 mmol/L (10-20); BUN (Urea Nitrogen) 6 mg/dL (8.4-25.7); Band 3 % (5-11); Calc. Creatinine Clearance 137 mL/min (70-130); Calcium 8.7 mg/dL (7.8-10.44); Carbon Dioxide 27 mmol/L (23-31); Chloride 102 mmol/L (98-107); Estimated GFR-MDRD Greater than 90; Glucose 182 mg/dL (80-115); Hypochromia SLIGHT = 6-15 cells (100X) (0-5/hpf); Lymphocytes 6 % (21-51); MDiff Complete? YES; Monocytes 2 % (0-10); Neutrophil 89 % (42-75); PLT Morphology Comment Appears Adequate; Phosphorus 3.3 mg/dL (2.3-4.7); Potassium 3.7 mmol/L (3.5-5.1); Sodium 137 mmol/L (136-145)
--- NOTE | 2018-04-08 22:22 | CT ---
CT ABDOMEN AND PELVIS PERFORMED WITHOUT CONTRAST ENHANCEMENT: HISTORY: Followup of pneumatosis of the cecum. COMPARISON: CT examinations of 04/07/2018 and 04/04/2018. FINDINGS: A small right pleural effusion is identified with bibasilar lung changes, somewhat more confluent in the right base, probably related to atelectasis. Some of these changes could indicate developing inf iltrate. The liver shows no focal abnormalities. The spleen is enlarged and measures 15 cm in length. The pa ncreas and gallbladder regions are unremarkable. A right adrenal nodule is present, possibly an adenoma but indeterminate. It measures 17 mm. The le ft adrenal is unremarkable. The right and left kidneys are normal in size. Vascular calcifications are noted. There may be some renal calculi also present. There is some mild dilatation to both saeed ecting systems, which is felt to be on the basis of a distended bladder. Small bowel dilatation is a gain seen. There is suggestion of some improvement to the bowel wall thickening and distention. The re is still a very irregular appearance to the cecum with pneumatosis changes. This appearance is fa irly similar to the prior exam. I do not see any signs of free air or portal venous gas. I do not d efinitely identify an appendix. Fat stranding in this area is similar to the previous study. There is only trace free fluid in the pelvis. Sigmoid diverticulosis is noted. There is a fluid density c ollection, which extends from the level of the cecum to the inferior margin of the liver. A portion of this is intimately related to the fundus region of the gallbladder. This is more prominent than o n the 04/04/2018 study. I do not believe that this represents bowel. It is intimately related to th e colon wall. On the coronal images, it extends along the length of 13 to 14 cm. There is no air wi thin this. I would be concerned that there is some type of contained perforation. IMPRESSION: Persistent pneumatosis type changes of the cecum. The distention of the small bowel and wall thicken ing appears somewhat less pronounced from the prior examination; however, the changes of the cecum ar e very similar. There is a somewhat lobulated fluid density collection, which begins along the anter ior and slightly lateral margin of the cecum, extending superiorly. It becomes intimately related to the inferior margin of the right lobe of the liver, extending to the gallbladder. It has progressed as compared to the 04/04/2018 study, and appears to probably represent some type of loculated fluid collection. I cannot exclude it being an infected collection. It is difficulty to separate, in some areas, from small bowel and right colon. POS: FIDEL
[2018-04-08] MEDS ORDERED: Lactated Ringer's 1,000 ML IV SCH (23:30)
[2018-04-08] MEDS ORDERED: Tamsulosin HCl 0.4 MG CAP PO SCH (23:30)
[2018-04-08 23:42] LABS: PTT 153.6 SEC (22.9-36.1)
[2018-04-09 01:25] LABS: CKMB 5.6 ng/mL (0-6.6); Troponin I 0.082 ng/mL (< 0.028)
[2018-04-09 02:59] LABS: #Lymphocytes 0.5 thou/uL (1.20-3.40); #Monocytes 0.3 thou/uL (0.11-0.59); #Neutrophils 6.5 thou/uL (1.40-6.50); %Basophils 0.1 % (0.0-1.0); %Eosinophils 0.2 % (0.0-10.0); %Lymphocytes 7.1 % (21.0-51.0); %Monocytes 4.2 % (0.0-10.0); %Neutrophils 88.4 % (42.0-75.0); Hemoglobin 11.8 g/dL (14.0-18.0); Mean Corpuscular HGB CONC 34.2 g/dL (32.0-36.0); Mean Corpuscular Hemoglobin 32.7 pg (27.0-31.0); Mean Corpuscular Volume 95.4 fL (78.0-98.0); Mean Platelet Volume 7.5 fL (7.4-10.4); Platelet Count 172 thou/uL (130-400); RBC Distribution Width 11.9 % (11.5-14.5); Red Blood Cell (RBC) Count 3.63 mill/uL (4.70-6.10); White Blood Cell (WBC) Count 7.4 thou/uL (4.8-10.8)
[2018-04-09 03:10] LABS: Anion Gap 10 mmol/L (10-20); BUN (Urea Nitrogen) 7 mg/dL (8.4-25.7); Calc. Creatinine Clearance 135 mL/min (70-130); Carbon Dioxide 30 mmol/L (23-31); Chloride 102 mmol/L (98-107); Estimated GFR-MDRD Greater than 90; Glucose 169 mg/dL (80-115); Magnesium 2.2 mg/dL (1.6-2.6); Phosphorus 3.2 mg/dL (2.3-4.7); Potassium 4.3 mmol/L (3.5-5.1); Sodium 138 mmol/L (136-145)
[2018-04-09] MEDS: Piperacillin/Tazobactam 3.375 GM in Sodium Chloride 0.9% 100 ML IVPB SCH ×4 (04:17→23:41)
[2018-04-09] MEDS: Heparin 25,000 units/D5W 500 ML IVPB SCH (07:00)
[2018-04-09] MEDS ORDERED: Lisinopril/Hydrochlorothiazide 20/25 mg Tablet PO SCH (09:00)
[2018-04-09] MEDS: Famotidine/PF 20 mg/2ml Vial SLOW IVP SCH ×2 (09:19→20:16)
[2018-04-09] MEDS: Oxazepam 10 MG CAP PO SCH ×2 (09:19→17:13)
--- NOTE | 2018-04-09 09:33 | PRG ---
DATE OF SERVICE: 04/09/2018 Mr. Gallagher is seen at the bedside this with his . He is not complaining of any pain, but he is qu ite confused this morning. I understand that is better than it has been in the last few days. He is more dyspneic and tachypneic. PHYSICAL EXAMINATION: VITAL SIGNS: His pulse is 90, respirations 16. He is 91% on 5 liters, blood pressure 143/73. His u rine output is 2000 in the last shift, no vomiting. ABDOMEN: Soft. He is tender in the right abdomen without guarding or rebound. LABORATORY DATA: White blood cell count is 7, hemoglobin 11, platelet count is 172. Sodium 138, pot assium 4.3, creatinine 0.72. Most recent CT yesterday revealed worsening inflammatory change in the right abdomen, question of con tained perforation. ASSESSMENT: 1. Ischemic colitis with altered mental status, questionable early sepsis. 2. He also drinks 6 beers a day according to the , so some of this could be withdrawal; however, cannot rule out ischemic or necrotic cecum. PLAN: I recommended exploratory laparotomy. After a long discussion with the patient and the I do not think they will consent. He understands that if we wait he could get much worse and that cou ld lead to abdominal catastrophe. Plan surgery later today.
[2018-04-09] MEDS ORDERED: Lidocaine 1% PF 5 ML VIAL ONE (12:38)
[2018-04-09] MEDS ORDERED: PROPOFOL 200 MG/20 ML VIAL ONE (12:38)
[2018-04-09] MEDS ORDERED: Glycopyrrolate 0.2 MG/ML 5 ML SYRINGE ONE (12:38)
[2018-04-09] MEDS ORDERED: PHENYLEPHRINE-NS 100 MCG/ML 10 ML SYRINGE ONE (12:38)
[2018-04-09] MEDS ORDERED: Ondansetron HCl/PF 4 MG/2 ML Vial ONE (12:38)
[2018-04-09] MEDS ORDERED: ePHEDrine/0.9% NaCl/PF SYRINGE 50 mg/10 ml ONE (12:38)
[2018-04-09] MEDS ORDERED: Fentanyl 250 MCG/5 ML VIAL ONE (15:18)
[2018-04-09] MEDS ORDERED: Norepinephrine 4 MG/4 ML VIAL ONE (15:18)
[2018-04-09] MEDS ORDERED: Phenylephrine HCL 10 MG/ML VIAL ONE (15:19)
[2018-04-09] MEDS ORDERED: Fentanyl 100 MCG/2 ML VIAL ONE ×2 (17:26→17:38)
[2018-04-09] MEDS ORDERED: Ondansetron HCl/PF 4 MG/2 ML Vial IVP PRN ×2 (17:55→18:15)
[2018-04-09] MEDS ORDERED: Promethazine HCl 25 MG/ML VIAL SLOW IVP PRN (17:55)
[2018-04-09] MEDS ORDERED: HumaLOG 300 UNITS/3 ML VIAL SC PRN (18:15)
[2018-04-09] MEDS ORDERED: Ketorolac Tromethamine 30 MG/ML VIAL IVP PRN (18:15)
[2018-04-09] MEDS ORDERED: hydrALAZINE 20 MG/ML VIAL SLOW IVP PRN (18:15)
[2018-04-09] MEDS ORDERED: Morphine 4 MG/ML VIAL SLOW IVP PRN ×2 (18:15)
[2018-04-09] MEDS ORDERED: Promethazine HCl 25 MG/ML VIAL IM PRN (18:15)
[2018-04-09] MEDS: Acetaminophen 1,000 MG in Premix Bag 1 BAG IVPB SCH (20:15)
[2018-04-09] MEDS: D5 1/2 NS w/20 mEq KCL 1,000 ML IV SCH (20:16)
[2018-04-09] MEDS: Enoxaparin Sodium 40 MG/0.4 ML SYRINGE SC SCH (20:16)
--- NOTE | 2018-04-09 20:50 | EKG ---
Test Reason : Blood Pressure : / mmHG Vent. Rate : 083 BPM Atrial Rate : 083 BPM P-R Int : 168 ms QRS Dur : 108 ms QT Int : 378 ms P-R-T Axes : -02 024 025 degrees QTc Int : 444 ms Normal sinus rhythm Nonspecific ST abnormality Abnormal ECG When compared with ECG of 04-APR-2018 12:33, No significant change was found Confirmed by MIRNA CHAVEZ (2) on 04/09/2018 8:49:53 PM Referred By: PETRONA Confirmed By:MIRNA CHAVEZ
[2018-04-09] MEDS ORDERED: Tamsulosin HCl 0.4 MG CAP PO SCH (21:00)
[2018-04-09] MEDS: Famotidine 20 MG TAB PO SCH (21:22)
[2018-04-09] MEDS ORDERED: Oxazepam 10 MG CAP PO SCH (23:30)
[2018-04-10] MEDS: Oxazepam 10 MG CAP PO SCH ×3 (00:27→17:21)
[2018-04-10] MEDS: Acetaminophen 1,000 MG in Premix Bag 1 BAG IVPB SCH ×3 (02:03→15:03)
[2018-04-10] MEDS: D5 1/2 NS w/20 mEq KCL 1,000 ML IV SCH ×3 (03:29→19:53)
[2018-04-10] MEDS: Piperacillin/Tazobactam 3.375 GM in Sodium Chloride 0.9% 100 ML IVPB SCH ×4 (04:03→21:09)
[2018-04-10 05:59] LABS: Anion Gap 9 mmol/L (10-20); BUN (Urea Nitrogen) 10 mg/dL (8.4-25.7); Calc. Creatinine Clearance 130 mL/min (70-130); Calcium 8.3 mg/dL (7.8-10.44); Carbon Dioxide 32 mmol/L (23-31); Chloride 100 mmol/L (98-107); Estimated GFR-MDRD Greater than 90; Glucose 142 mg/dL (80-115); Potassium 4.3 mmol/L (3.5-5.1); Sodium 137 mmol/L (136-145)
[2018-04-10 06:14] LABS: Band 20 % (5-11); Eosinophils 1 % (0-10); Hemoglobin 12.4 g/dL (14.0-18.0); Lymphocytes 7 % (21-51); MDiff Complete? YES; Mean Corpuscular HGB CONC 33.2 g/dL (32.0-36.0); Mean Corpuscular Volume 96.4 fL (78.0-98.0); Mean Platelet Volume 7.2 fL (7.4-10.4); Monocytes 6 % (0-10); Neutrophil 66 % (42-75); PLT Morphology Comment Appears Adequate; Platelet Count 245 thou/uL (130-400); RBC Distribution Width 11.8 % (11.5-14.5); Red Blood Cell (RBC) Count 3.89 mill/uL (4.70-6.10); White Blood Cell (WBC) Count 13.8 thou/uL (4.8-10.8)
[2018-04-10] MEDS: Famotidine/PF 20 mg/2ml Vial SLOW IVP SCH ×2 (08:29→19:48)
[2018-04-10] MEDS: Famotidine 20 MG TAB PO SCH ×2 (08:30→21:00)
--- NOTE | 2018-04-10 12:17 | PRG ---
DATE OF SERVICE: 04/10/2018 SUBJECTIVE: Postop day #1 right colectomy. Mr. Gallagher is still confused, not really complaining of m uch pain. He is afebrile. PHYSICAL EXAMINATION: VITAL SIGNS: Stable. His saturations are approved. He is 94% on room air now. NG output is minima l 150 and Resendez 1000. ABDOMEN: Soft. His wounds are healing well. LABORATORY DATA: White blood cell count is 13. He has got 20 bands. Sodium is 137, potassium 4.3, creatinine 0.75. ASSESSMENT: Postoperative day #1 right colectomy for ischemia. PLAN: Continue NG tube and Resendez today. Hopefully, his confusion will improve and we can start to m obilize better.
--- NOTE | 2018-04-10 12:51 | OP ---
DATE OF PROCEDURE: 04/09/2018 PREOPERATIVE DIAGNOSIS: Ischemic right colon and sepsis. POSTOPERATIVE DIAGNOSIS: Ischemic right colon and sepsis. PROCEDURE: Right colectomy with isoperistaltic ileocolonic anastomosis. SURGEON: Tai Varghese M.D. ANESTHESIA: General. ESTIMATED BLOOD LOSS: Minimal. COMPLICATIONS: None. SPECIMEN: Right colon. FINDINGS: Ischemic right colon with perforation. TECHNIQUE: The patient was taken to the operating room and laid supine on the operating room supine on the table. After general anesthetic was obtained, a Resendez was placed. The abdomen was shaved, pr epped, and draped in a sterile fashion. Midline incision is made. Cautery was used to dissect down to and into the abdominal cavity carefully without injury. Bookwalter retractor was placed. There i s significant amount of pus in the retroperitoneum on the right side behind the colon. This was all drained and cultures were obtained. The white line of Toldt is mobilized using cautery. The right u reter was found and excluded from the dissection. Hepatic flexure is mobilized using the impact Liga Sure. INDIRA-75 stapler fired across the mid transverse colon. The cecum was paper thin ischemic and h ad perforated. There was no evidence of ischemic changes to the terminal ileum. INDIRA-75 stapler was fired across the terminal ileum. Ileocolic vessels were taken using Dana clamp and silk ties. The rest of the right colon mesentery taken using the impact LigaSure. There was no other evidence of is chemia in the abdomen. The end of the small bowel in the mid transverse colon had no evidence of isc hemia. Decision was made for primary anastomosis. An isoperistaltic anastomosis was performed betwe en the terminal ileum and the mid transverse colon using INDIRA-75 stapler. The common enterotomy was c losed using a running 2-0 Vicryl in two layers. The mesenteric defect was closed. The abdomen is ir rigated using multiple liters of warm sterile solution until returns are clear. All instrument count s, needle counts, lap counts were correct. There was no ongoing bleeding. PDS was used to close the fascia from the top and the bottom and tied in the middle. Subcutaneous tissues are irrigated and c losed loosely using skin justino. Telfa aleja were placed in between the justino. The patient is en route to recovery in stable condition. All instrument counts, needle counts, lap counts were correc t.
[2018-04-10] MEDS: Enoxaparin Sodium 40 MG/0.4 ML SYRINGE SC SCH (19:49)
[2018-04-11] MEDS: Oxazepam 10 MG CAP PO SCH ×3 (00:04→16:51)
[2018-04-11] MEDS: Piperacillin/Tazobactam 3.375 GM in Sodium Chloride 0.9% 100 ML IVPB SCH ×4 (03:04→22:08)
[2018-04-11] MEDS: D5 1/2 NS w/20 mEq KCL 1,000 ML IV SCH (03:04)
[2018-04-11 04:43] LABS: Anion Gap 10 mmol/L (10-20); BUN (Urea Nitrogen) 9 mg/dL (8.4-25.7); Calc. Creatinine Clearance 137 mL/min (70-130); Calcium 8.7 mg/dL (7.8-10.44); Carbon Dioxide 30 mmol/L (23-31); Chloride 101 mmol/L (98-107); Estimated GFR-MDRD Greater than 90; Glucose 149 mg/dL (80-115); Potassium 4.3 mmol/L (3.5-5.1); Sodium 137 mmol/L (136-145)
[2018-04-11 04:58] LABS: Hemoglobin 12.4 g/dL (14.0-18.0); Hypochromia SLIGHT = 6-15 cells (100X) (0-5/hpf); Lymphocytes 6 % (21-51); MDiff Complete? YES; Mean Corpuscular HGB CONC 33.1 g/dL (32.0-36.0); Mean Corpuscular Hemoglobin 31.9 pg (27.0-31.0); Mean Corpuscular Volume 96.6 fL (78.0-98.0); Mean Platelet Volume 6.9 fL (7.4-10.4); Monocytes 5 % (0-10); Neutrophil 89 % (42-75); PLT Morphology Comment Appears Adequate; Platelet Count 276 thou/uL (130-400); RBC Distribution Width 11.8 % (11.5-14.5); Red Blood Cell (RBC) Count 3.89 mill/uL (4.70-6.10); White Blood Cell (WBC) Count 14.1 thou/uL (4.8-10.8)
[2018-04-11] MEDS: Famotidine 20 MG TAB PO SCH ×2 (09:08→22:08)
[2018-04-11] MEDS: Famotidine/PF 20 mg/2ml Vial SLOW IVP SCH ×2 (09:08→22:18)
[2018-04-11] MEDS ORDERED: predniSONE 20 MG TAB PO SCH (09:30)
--- NOTE | 2018-04-11 10:49 | PRG ---
DATE OF SERVICE: 04/11/2018 SUBJECTIVE: This is a 63-year-old male who is postop day #2 status post right colectomy. The patien t's mental status continues to improve and confusion is resolving. He does remain on a nasal cannula at 5 liters. Pain has been controlled. He states that he did not have a bowel movement yet, but is passing gas. The patient states pain is controlled. OBJECTIVE: VITAL SIGNS: Temperature 98.3, pulse 85, respirations 18-22, O2 sat 95% on 4-5 liters nasal cannula, blood pressure 168/95. GENERAL: Resting in bed in no acute distress. NG tube is in place with perez output. PULMONARY: Normal work of breathing. Symmetric rise. Lung sounds are diminished, but clear bilater ally with expiratory wheezing. CARDIOVASCULAR: Regular rate and rhythm. No murmurs, rubs or gallops. ABDOMEN: Midline incision is clean, dry, and intact with minimal serosanguinous staining on the wick s. Bowel sounds are positive. Abdomen is soft with minimal tenderness. MUSCULOSKELETAL: Moves all extremities x4. NEUROLOGIC: No focal deficit noted. LABORATORY DATA: WBC 14.1, hemoglobin 12.4, hematocrit 37.6, platelet count 276. Sodium 137, potass ium 4.3, chloride 101, carbon dioxide 30, BUN 9, creatinine 0.71, glucose 149. ASSESSMENT: 1. Pneumatosis with bowel ischemia. 2. Postop day #2 status post right colectomy and ileocolonic anastomosis. 3. Early sepsis, improving. PLAN: Continue antibiotics as ordered. We will discontinue NG tube and Resendez at this time. Clear l iquid diet. Discontinue IV fluids. Given the patient's persistent O2 requirements, we will recheck chest x-ray and sputum culture. Continue steroids and DuoNebs. Encourage incentive spirometry and p ulmonary toileting. Encourage mobility with walking program. Plan of care was discussed with the pa mukund and family at bedside and all questions were answered at the time of this dictation. The patient was discussed with trauma attending.
--- NOTE | 2018-04-11 11:05 | RAD ---
CHEST ONE VIEW: History: 63-year-old male with history of pulmonary edema. Comparison: 04-07-18 FINDINGS: Heart size is within normal limits. NG tube in place. No confluent pneumonia, overt edema, or pleural effusion. Left apical pleural thickening. IMPRESSION: Stable bilateral chronic changes. NG tube in place. No significant acute process. POS: TPC
[2018-04-11] MEDS: Acetaminophen 500 MG TAB PO SCH ×2 (11:59→17:30)
[2018-04-11] MEDS: traMADol HCl 50 MG TAB PO SCH ×2 (11:59→17:30)
[2018-04-11] MEDS: Enoxaparin Sodium 40 MG/0.4 ML SYRINGE SC SCH (22:08)
[2018-04-12] MEDS: Oxazepam 10 MG CAP PO SCH ×3 (01:11→16:25)
[2018-04-12] MEDS: traMADol HCl 50 MG TAB PO SCH ×4 (01:13→17:12)
[2018-04-12] MEDS: Acetaminophen 500 MG TAB PO SCH ×4 (01:13→17:11)
[2018-04-12] MEDS: Piperacillin/Tazobactam 3.375 GM in Sodium Chloride 0.9% 100 ML IVPB SCH ×4 (04:01→21:48)
[2018-04-12 06:09] LABS: #Eosinphils 0.1 thou/uL (0.0-0.7); #Lymphocytes 1.7 thou/uL (1.20-3.40); #Monocytes 0.9 thou/uL (0.11-0.59); #Neutrophils 8.2 thou/uL (1.40-6.50); %Basophils 0.1 % (0.0-1.0); %Lymphocytes 15.4 % (21.0-51.0); %Neutrophils 75.6 % (42.0-75.0); Hemoglobin 12.2 g/dL (14.0-18.0); Mean Corpuscular HGB CONC 32.4 g/dL (32.0-36.0); Mean Corpuscular Hemoglobin 31.4 pg (27.0-31.0); Platelet Count 251 thou/uL (130-400); RBC Distribution Width 11.7 % (11.5-14.5); Red Blood Cell (RBC) Count 3.87 mill/uL (4.70-6.10); White Blood Cell (WBC) Count 10.9 thou/uL (4.8-10.8)
[2018-04-12 06:21] LABS: Anion Gap 11 mmol/L (10-20); BUN (Urea Nitrogen) 12 mg/dL (8.4-25.7); Calc. Creatinine Clearance 150 mL/min (70-130); Calcium 8.7 mg/dL (7.8-10.44); Carbon Dioxide 24 mmol/L (23-31); Chloride 103 mmol/L (98-107); Estimated GFR-MDRD Greater than 90; Glucose 100 mg/dL (80-115); Magnesium 2.1 mg/dL (1.6-2.6); Phosphorus 2.9 mg/dL (2.3-4.7); Potassium 4.3 mmol/L (3.5-5.1); Sodium 134 mmol/L (136-145)
[2018-04-12] MEDS: Famotidine 20 MG TAB PO SCH ×2 (07:48→21:46)
[2018-04-12] MEDS: predniSONE 20 MG TAB PO SCH (07:48)
[2018-04-12] MEDS: Famotidine/PF 20 mg/2ml Vial SLOW IVP SCH ×2 (07:50→21:47)
[2018-04-12] MEDS: traMADol HCl 50 MG TAB PO PRN (07:53)
[2018-04-12] MEDS ORDERED: predniSONE 20 MG TAB PO SCH (09:11)
[2018-04-12] MEDS ORDERED: Lisinopril/Hydrochlorothiazide 20/25 mg Tablet PO SCH (10:45)
[2018-04-12] MEDS: Enoxaparin Sodium 40 MG/0.4 ML SYRINGE SC SCH (21:46)
[2018-04-13] MEDS: Acetaminophen 500 MG TAB PO SCH ×4 (00:46→17:39)
[2018-04-13] MEDS: traMADol HCl 50 MG TAB PO SCH ×4 (00:46→17:39)
[2018-04-13] MEDS: Oxazepam 10 MG CAP PO SCH ×3 (00:47→17:56)
[2018-04-13] MEDS: Piperacillin/Tazobactam 3.375 GM in Sodium Chloride 0.9% 100 ML IVPB SCH ×2 (03:53→10:46)
[2018-04-13] MEDS: Famotidine 20 MG TAB PO SCH ×2 (08:40→20:12)
[2018-04-13] MEDS: predniSONE 20 MG TAB PO SCH (08:41)
[2018-04-13] MEDS: Lisinopril/Hydrochlorothiazide 20/25 mg Tablet PO SCH (08:41)
[2018-04-13] MEDS: Famotidine/PF 20 mg/2ml Vial SLOW IVP SCH ×2 (08:48→20:14)
[2018-04-13] MEDS ORDERED: Milk Of Magnesia 30 ML UDCUP PO SCH (11:00)
--- NOTE | 2018-04-13 12:33 | PRG ---
DATE OF SERVICE: 04/13/2018 Mr. Gallagher is doing well. He tolerated the full liquids without difficulty, he is passing gas. He brown s not had a bowel movement since surgery. He is ambulatory. His pain is minimal. He is urinating w ithout difficulty. He is afebrile. Vital signs are stable. His abdomen is soft, nontender. He has active bowel sounds . Midline wound dressing is changed. He still has a little bit of drainage at the wick sites. The wick sites were probed using cotton tip applicator and dressings reapplied. ASSESSMENT: Status post right colectomy for ischemic right colon with intraabdominal abscess. PLAN: Stop steroids, changed to p.o. antibiotics. Likely home tomorrow.
[2018-04-13] MEDS: Enoxaparin Sodium 40 MG/0.4 ML SYRINGE SC SCH (20:12)
[2018-04-14] MEDS: Oxazepam 10 MG CAP PO SCH ×3 (00:37→17:51)
[2018-04-14] MEDS: Acetaminophen 500 MG TAB PO SCH ×4 (00:37→17:51)
[2018-04-14] MEDS: traMADol HCl 50 MG TAB PO SCH ×4 (00:38→17:52)
[2018-04-14] MEDS: Lisinopril/Hydrochlorothiazide 20/25 mg Tablet PO SCH (09:15)
[2018-04-14] MEDS: Famotidine 20 MG TAB PO SCH ×2 (09:15→20:22)
[2018-04-14] MEDS: Famotidine/PF 20 mg/2ml Vial SLOW IVP SCH ×2 (09:17→20:22)
[2018-04-14] MEDS ORDERED: metroNIDAZOLE 500 MG TAB PO SCH ×2 (11:30→15:00)
[2018-04-14] MEDS ORDERED: Ciprofloxacin 500 MG TAB PO SCH ×2 (11:30→20:00)
--- NOTE | 2018-04-14 16:14 | PRG ---
DATE OF SERVICE: 04/14/2018 SUBJECTIVE: Mr. Gallagher is a 63-year-old man with history of severe peripheral vascular disease. The patient is postoperative day #4 status post exploratory laparotomy, right hemicolectomy with primary anastomosis. Today, he reports adequate pain control. He is tolerating general diet, having normal bowel and urinary function. Urinary output has been adequate. OBJECTIVE: VITAL SIGNS: Include blood pressure 116/70, pulse is 67, respiratory rate 16, temperature is 97.3 de grees Fahrenheit. Oxygen saturation is 91% on room air. HEART: Reveals regular rate and rhythm. LUNGS: Reveals scattered rhonchi. Breathing is regular and unlabored. ABDOMEN: Soft, nontender, nondistended. Incision is intact with drainage of seropurulent fluid betw een justino. There is no erythema or induration. NEUROLOGIC: Reveals no focal deficits present. IMPRESSION: 1. Postoperative day #4 status post laparotomy with a right hemicolectomy and primary anastomosis. 2. Postoperative wound infection. PLAN: 1. We will introduce an iodoform gauze strips in between justino. Continue local wound care. 2. We will also initiate oral antibiotic therapy for the several days. 3. We will reevaluate the wound in the morning and decide if we need to remove the rest of the stapl es and allowed the wound to heal by secondary intention. Above findings and plan discussed with the patient and his at bedside. They both indicated unde rstanding of information given at the present time. I answered their questions.
[2018-04-14] MEDS: Enoxaparin Sodium 40 MG/0.4 ML SYRINGE SC SCH (20:21)
[2018-04-14] MEDS: Amoxicillin/Potassium Clav 875 MG TAB PO SCH (20:22)
[2018-04-15] MEDS: Acetaminophen 500 MG TAB PO SCH ×3 (05:40→11:36)
[2018-04-15] MEDS: traMADol HCl 50 MG TAB PO SCH ×3 (05:40→11:36)
[2018-04-15 06:12] LABS: Anion Gap 12 mmol/L (10-20); BUN (Urea Nitrogen) 12 mg/dL (8.4-25.7); Calc. Creatinine Clearance 126 mL/min (70-130); Calcium 9.6 mg/dL (7.8-10.44); Carbon Dioxide 29 mmol/L (23-31); Chloride 96 mmol/L (98-107); Estimated GFR-MDRD Greater than 90; Glucose 109 mg/dL (80-115); Magnesium 1.8 mg/dL (1.6-2.6); Phosphorus 3.4 mg/dL (2.3-4.7); Sodium 133 mmol/L (136-145)
[2018-04-15 06:52] LABS: Band 4 % (5-11); Eosinophils 3 % (0-10); Hemoglobin 15.1 g/dL (14.0-18.0); Lymphocytes 7 % (21-51); MDiff Complete? YES; Mean Corpuscular HGB CONC 32.6 g/dL (32.0-36.0); Mean Corpuscular Hemoglobin 30.7 pg (27.0-31.0); Mean Corpuscular Volume 94.3 fL (78.0-98.0); Mean Platelet Volume 6.1 fL (7.4-10.4); Monocytes 12 % (0-10); Neutrophil 74 % (42-75); PLT Morphology Comment Appears Increased; Platelet Count 431 thou/uL (130-400); Red Blood Cell (RBC) Count 4.92 mill/uL (4.70-6.10); White Blood Cell (WBC) Count 16.7 thou/uL (4.8-10.8)
[2018-04-15] MEDS: Amoxicillin/Potassium Clav 875 MG TAB PO SCH (08:56)
[2018-04-15] MEDS: Famotidine/PF 20 mg/2ml Vial SLOW IVP SCH (08:56)
[2018-04-15] MEDS: Lisinopril/Hydrochlorothiazide 20/25 mg Tablet PO SCH (08:56)
[2018-04-15] MEDS: Oxazepam 10 MG CAP PO SCH ×2 (08:57)
[2018-04-15] MEDS: Famotidine 20 MG TAB PO SCH (08:57)
[2018-04-15] MEDS: traMADol HCl 50 MG TAB PO PRN (13:28)
[2018-04-15 13:40] VITALS: BP 109/79; TEMP 98.2
== END 2018-04-15 13:48 | disposition home or self-care (01) | DRG 853 ==
LOC: ERS 12:01 → SURG B 19:07 → SURG A 04-08 19:45
PROVIDERS: ADMIT Surgery; ATTEND Surgery
PROC: 0DBL0ZZ Excision of Transverse Colon, Open Approach (ICD-10-PCS; principal; 2018-04-10)
PROC: 0D1B0ZL Bypass Ileum to Transverse Colon, Open Approach (ICD-10-PCS; 2018-04-10)
DX: A41.9 Sepsis, unspecified organism (principal); K55.039 Acute (reversible) ischemia of large intestine, extent unspecified; J96.01 Acute respiratory failure with hypoxia; E87.1 Hypo-osmolality and hyponatremia; M31.9 Necrotizing vasculopathy, unspecified; T81.4XXA Infection following a procedure, initial encounter; F17.210 Nicotine dependence, cigarettes, uncomplicated; I10 Essential (primary) hypertension; E78.5 Hyperlipidemia, unspecified; Z79.899 Other long term (current) drug therapy; Z79.82 Long term (current) use of aspirin; I73.9 Peripheral vascular disease, unspecified; E83.42 Hypomagnesemia; E87.6 Hypokalemia
CPT/HCPCS: 36415; 36416; 70450; 71045; 74022; 74176; 74177; 80048; 80053; 81003; 82553; 82805; 83605; 83690; 83735; 83880; 84100; 84484; 85014; 85018; 85025; 85049; 85610; 85730; 87040; 87070; 87076; 87077; 87186; 87205; 88307; 90471; 90732; 93005; 93010; 93306; 94640; 96361; 96365; 96367; 96375; G0009; G8978-GP-CH; G8979-GP-CH; G8980-GP-CH; G8987-GO-CI; G8988-GO-CI; G8989-GO-CI; J0131; J1630; J1644; J1650; J1940; J2001; J2060; J2270; J2370; J2405; J2543; J2550; J2704; J2920; J3010; J3475; J3480; J3486; J7050; J7506; J7620; S0028

== ENCOUNTER 2018-04-16 06:30 | Inpatient (IN) | payer BC ==
[2018-04-16 07:14] LABS: Hemoglobin 16.5 g/dL (14.0-18.0); Mean Corpuscular HGB CONC 32.7 g/dL (32.0-36.0); Mean Corpuscular Hemoglobin 30.9 pg (27.0-31.0); Mean Corpuscular Volume 94.5 fL (78.0-98.0); Mean Platelet Volume 6.5 fL (7.4-10.4); Platelet Count 445 thou/uL (130-400); Red Blood Cell (RBC) Count 5.33 mill/uL (4.70-6.10); White Blood Cell (WBC) Count 22.2 thou/uL (4.8-10.8)
[2018-04-16 07:16] LABS: INR-International Normal Ratio 1.1; PTT 29.5 SEC (22.9-36.1); Prothrombin Time 14.2 SEC (12.0-14.7)
[2018-04-16] MEDS ORDERED: Fentanyl 250 MCG/5 ML VIAL ONE (07:28)
[2018-04-16 07:32] LABS: ALT (SGPT) 75 U/L (8-55); AST (SGOT) 37 U/L (5-34); Alkaline Phosphatase 100 U/L (40-150); Anion Gap 14 mmol/L (10-20); BUN (Urea Nitrogen) 16 mg/dL (8.4-25.7); Calc. Creatinine Clearance 0 mL/min (70-130); Calcium 10.1 mg/dL (7.8-10.44); Carbon Dioxide 28 mmol/L (23-31); Chloride 95 mmol/L (98-107); Estimated GFR-MDRD Greater than 90; Globulin 3.8 g/dL (2.4-3.5); Glucose 128 mg/dL (80-115); Potassium 4.8 mmol/L (3.5-5.1); Protein, Total 7.8 g/dL (5.8-8.1); Sodium 132 mmol/L (136-145)
[2018-04-16 07:37] LABS: Band 3 % (5-11); Eosinophils 1 % (0-10); Lymphocytes 8 % (21-51); MDiff Complete? YES; Monocytes 3 % (0-10); Neutrophil 83 % (42-75); PLT Morphology Comment Appears Increased; Reactive Lymphocytes 2 % (0-10); Vacuoles SLIGHT
[2018-04-16] MEDS ORDERED: Fentanyl 100 MCG/2 ML VIAL ONE (09:08)
[2018-04-16] MEDS ORDERED: HYDROmorphone 2 MG/ML VIAL ONE (09:08)
[2018-04-16] MEDS ORDERED: Dextrose 5% in Water 1,000 ML IV PRN (11:16)
[2018-04-16] MEDS ORDERED: Dextrose 50% Abboject 50 ML SYRINGE SLOW IVP PRN (11:16)
[2018-04-16] MEDS ORDERED: Ondansetron HCl/PF 4 MG/2 ML Vial IVP PRN (11:16)
[2018-04-16] MEDS ORDERED: hydrALAZINE 20 MG/ML VIAL SLOW IVP PRN (11:16)
[2018-04-16] MEDS ORDERED: Promethazine HCl 25 MG/ML VIAL IM PRN (11:16)
[2018-04-16] MEDS ORDERED: Morphine 4 MG/ML VIAL SLOW IVP PRN (11:30)
[2018-04-16] MEDS: Sodium Chloride 0.9% 1,000 ML IV SCH ×2 (11:36→20:55)
[2018-04-16] MEDS ORDERED: PHENYLEPHRINE-NS 100 MCG/ML 10 ML SYRINGE ONE (12:15)
[2018-04-16] MEDS ORDERED: Lidocaine 1% PF 5 ML VIAL ONE (12:15)
[2018-04-16] MEDS ORDERED: Ondansetron HCl/PF 4 MG/2 ML Vial ONE (12:15)
[2018-04-16] MEDS ORDERED: PROPOFOL 200 MG/20 ML VIAL ONE (12:15)
[2018-04-16] MEDS ORDERED: Glycopyrrolate 0.2 MG/ML 5 ML SYRINGE ONE (12:15)
--- NOTE | 2018-04-16 13:17 | HP ---
CHIEF COMPLAINT: Abdominal wound opened up. HISTORY OF PRESENT ILLNESS: This is a 63-year-old male who is status post right colectomy by me on 0 04/10/2018 for ischemic right colon, now presents with a history of evisceration small bowel out throu gh the opening. It happened this morning and noticed a lot of fluid drainage first. PAST MEDICAL HISTORY/SURGICAL HISTORY/MEDICATIONS/ALLERGIES: Please see previous H&P. PHYSICAL EXAMINATION: VITAL SIGNS: Pulse 100, respirations are 12, blood pressure is 148/67. He is afebrile. HEENT: Sclerae are anicteric. Oropharynx clear. NECK: No lymphadenopathy. CHEST: Clear. HEART: Regular rate and rhythm. ABDOMEN: Soft, obvious a dehiscence of the skin, fat and fascia with a small intestine evisceration. It appears viable. ASSESSMENT: Small bowel evisceration. PLAN: To the OR for washout and closure.
--- NOTE | 2018-04-16 14:29 | OP ---
DATE OF PROCEDURE: 04/16/2018 PREOPERATIVE DIAGNOSIS: Small bowel evisceration. POSTOPERATIVE DIAGNOSIS: Small bowel evisceration. PROCEDURE: Abdominal washout and closure by Abimael without complications. TECHNIQUE: The patient was taken to the operating room and placed supine on the table. After genera l anesthetic was obtained, the Resendez was placed. The abdomen is prepped and draped in a sterile fash ion. There is a half of the previously closed fascia is dehisced. There was small bowel in the woun d. The old PDS suture is all removed completely reopening the laparotomy. There was no pus. There was no fecal material or foul smell in the abdomen. All 4 quadrants of the abdomen were irrigated wi th warm sterile solution. The small bowel to colon anastomosis is intact without leakage. There is no pathology in the entire otherwise examined abdomen. No bleeding. The NG tube was felt to be in g ood position in the stomach. The fascia was closed using #1 PDS from the top and the bottom and tied in the middle. A 4-0 nylon sutures were passed out way wide and held in place using the plastic ret ention bars to support the closure. The skin is left open and a wound VAC is placed. The patient is en route to recovery in stable condition. All instrument counts, needle counts, lap counts were cor rect.
[2018-04-16] MEDS: HYDROcodone/Acetaminophen 10/325 mg Tablet PO PRN ×2 (15:56→20:55)
[2018-04-16] MEDS: cefOXitin 2 GM in Sodium Chloride 0.9% 100 ML IVPB SCH (15:58)
[2018-04-16] MEDS: Enoxaparin Sodium 40 MG/0.4 ML SYRINGE SC SCH (20:54)
[2018-04-16] MEDS: Famotidine/PF 20 mg/2ml Vial SLOW IVP SCH (20:54)
[2018-04-16] MEDS: Famotidine 20 MG TAB PO SCH (20:55)
[2018-04-17] MEDS: cefOXitin 2 GM in Sodium Chloride 0.9% 100 ML IVPB SCH ×2 (00:44→07:53)
[2018-04-17] MEDS: HYDROcodone/Acetaminophen 10/325 mg Tablet PO PRN ×2 (06:48→11:46)
[2018-04-17] MEDS: Famotidine 20 MG TAB PO SCH ×2 (07:53→21:12)
[2018-04-17] MEDS: Famotidine/PF 20 mg/2ml Vial SLOW IVP SCH ×2 (10:38→21:12)
[2018-04-17] MEDS: Sodium Chloride 0.9% 1,000 ML IV SCH (10:38)
[2018-04-17] MEDS ORDERED: Sodium Chloride 0.9% 1,000 ML IV SCH (11:34)
[2018-04-17] MEDS ORDERED: Loratadine 10 MG TAB PO SCH (12:00)
[2018-04-17 13:42] VITALS: BMI 26.4
--- NOTE | 2018-04-17 17:28 | PDOC.GSPN ---
Surgery Progress Note: Subj - Subjective Narrative: Pain controlled. Tolerating liquid diet. Surgery Progress Note: Obj - Vital signs Vital signs: Vital Signs - Most Recent Temp Pulse Resp BP Pulse Ox 98.1 F 91 18 126/73 91 L 04/17/18 15:27 04/17/18 15:27 04/17/18 15:27 04/17/18 15:27 04/17/18 15:27 - Physical Exam General: no distress Cardiovascular: regular rate and rhythm Respiratory: clear to auscultation Abdomen: soft, nondistended, appropriately tender Wound: wound vac (Retention bars intact) Surgery Progress Note: Results - Labs Result Diagrams: 04/16/18 06:59 04/16/18 06:58 Surgery Progress Note: A/P - Problem (1) Perioperative dehiscence of abdominal wound with evisceration Current Visit: Yes Code(s): T81.31XA - DISRUPTION OF EXTERNAL OPERATION ( SURGICAL) WOUND, NEC, INIT Status: Acute (2) Pneumatosis of intestines Current Visit: No Code(s): K63.89 - OTHER SPECIFIED DISEASES OF INTESTINE Status: Acute - Plan Plan: Advance to GI soft -HL IV -oral pain control -arrange home health or outpatient wound care
[2018-04-17] MEDS: Enoxaparin Sodium 40 MG/0.4 ML SYRINGE SC SCH (21:12)
[2018-04-17] MEDS: Atorvastatin Calcium 10 MG TAB PO SCH (21:12)
[2018-04-18] MEDS: Famotidine/PF 20 mg/2ml Vial SLOW IVP SCH ×2 (08:15→20:28)
[2018-04-18] MEDS: Famotidine 20 MG TAB PO SCH ×2 (08:19→19:58)
[2018-04-18] MEDS: Lisinopril/Hydrochlorothiazide 20/25 mg Tablet PO SCH (08:19)
[2018-04-18] MEDS: Loratadine 10 MG TAB PO SCH (08:19)
[2018-04-18] MEDS: HYDROcodone/Acetaminophen 10/325 mg Tablet PO PRN ×2 (10:54→15:33)
[2018-04-18] MEDS: Atorvastatin Calcium 10 MG TAB PO SCH (19:58)
[2018-04-18] MEDS: Enoxaparin Sodium 40 MG/0.4 ML SYRINGE SC SCH (19:58)
[2018-04-19] MEDS: Lisinopril/Hydrochlorothiazide 20/25 mg Tablet PO SCH (09:47)
[2018-04-19] MEDS: Famotidine 20 MG TAB PO SCH ×2 (09:48→20:44)
[2018-04-19] MEDS: Loratadine 10 MG TAB PO SCH (09:48)
[2018-04-19] MEDS: Famotidine/PF 20 mg/2ml Vial SLOW IVP SCH ×2 (09:49→20:45)
--- NOTE | 2018-04-19 15:14 | PDOC.GSPN ---
Surgery Progress Note: Subj - Subjective Patient reports: no new complaints, tolerating a regular diet Surgery Progress Note: Obj - Vital signs Vital signs: Vital Signs - Most Recent Temp Pulse Resp BP Pulse Ox 97.8 F 93 18 132/85 93 L 04/19/18 12:00 04/19/18 12:00 04/19/18 12:00 04/19/18 12:00 04/19/18 12:00 - Physical Exam General: no distress Cardiovascular: regular rate and rhythm Respiratory: clear to auscultation Abdomen: soft, nondistended, appropriately tender Wound: wound vac Surgery Progress Note: Results - Labs Result Diagrams: 04/16/18 06:59 04/16/18 06:58 Surgery Progress Note: A/P - Problem (1) Perioperative dehiscence of abdominal wound with evisceration Current Visit: Yes Code(s): T81.31XA - DISRUPTION OF EXTERNAL OPERATION ( SURGICAL) WOUND, NEC, INIT Status: Acute (2) Pneumatosis of intestines Current Visit: No Code(s): K63.89 - OTHER SPECIFIED DISEASES OF INTESTINE Status: Acute Assessment and Plan: POD 2 -tolerating GI soft diet -pain controlled -no bowel movment since surgery, try milk of magnesium -home health set up, probably home tomorrow after VAC change
[2018-04-19] MEDS ORDERED: Milk Of Magnesia 30 ML UDCUP PO SCH (15:15)
[2018-04-19] MEDS: Enoxaparin Sodium 40 MG/0.4 ML SYRINGE SC SCH (20:44)
[2018-04-19] MEDS: Atorvastatin Calcium 10 MG TAB PO SCH (20:44)
[2018-04-20] MEDS: Famotidine/PF 20 mg/2ml Vial SLOW IVP SCH (08:21)
[2018-04-20] MEDS: Lisinopril/Hydrochlorothiazide 20/25 mg Tablet PO SCH (08:22)
[2018-04-20] MEDS: Famotidine 20 MG TAB PO SCH (08:22)
[2018-04-20] MEDS: Loratadine 10 MG TAB PO SCH (08:22)
[2018-04-20] MEDS: HYDROcodone/Acetaminophen 10/325 mg Tablet PO PRN (09:52)
[2018-04-20 13:07] VITALS: BP 105/69; TEMP 97.9
--- NOTE | 2018-04-20 15:40 | DIS ---
DATE OF ADMISSION: 04/16/2018 DATE OF DISCHARGE: 04/20/2018 ADMITTING DIAGNOSES: 1. Evisceration and wound dehiscence. 2. History of ischemic right colon, status post previous open right hemicolectomy. DISCHARGE DIAGNOSES: 1. Evisceration and wound dehiscence. 2. History of ischemic right colon, status post previous open right hemicolectomy. PROCEDURES: Abdominal washout, closure with retention sutures by Dr. Varghese without complication CONDITION AT DISCHARGE: Improved. STAFF: Dr. Tai Varghese. HOSPITAL COURSE: The patient's postop course was uneventful. His diet was advanced very quickly to regular food. On the day of discharge, he is doing well. He is having minimal pain. He is afebrile and his vital signs are stable. Wound VAC has been changed by Wound Care. He is set up for Home He alth for wound VAC changes at home. Does not need any more antibiotics. Prescription given for hydr ocodone for the pain associated with dressing changes. He will follow up with me in 2 weeks.
== END 2018-04-20 12:55 | disposition home or self-care (01) | DRG 909 ==
LOC: ERS 06:30 → SDC 07:19 → ERS 07:37 → SURG B 09:43
PROVIDERS: ADMIT Surgery; ATTEND Surgery
PROC: 0WQF0ZZ Repair Abdominal Wall, Open Approach (ICD-10-PCS; principal; 2018-04-16)
DX: T81.31XA Disruption of external operation (surgical) wound, not elsewhere classified, initial encounter (principal); Y83.8 Other surgical procedures as the cause of abnormal reaction of the patient, or of later complication, without mention of misadventure at the time of the procedure; Y92.009 Unspecified place in unspecified non-institutional (private) residence as the place of occurrence of the external cause; K63.89 Other specified diseases of intestine
CPT/HCPCS: 36415; 36416; 80053; 83605; 85025; 85610; 85730; 86850; 86900; 86901; 93005; 99406; J0694; J1170; J1650; J2001; J2405; J2704; J3010; J7050; S0028